=== PATIENT | male | born 1975 | race African-American/Black ===

== ENCOUNTER 2017-02-20 08:25 | Emergency (ER) | payer SELFPAY ==
[~2017-02-20] VITALS: Ht 180.3 cm; Wt 86.2 kg
[~2017-02-20 08:25] MED LIST: CIPRO500 MG PO; METRONIDAZOLE250 MG PO; NKM; OMEPRAZOLE40 M1 ORAL; ONDANSETRON ODT4 MG PO; PANTOPRAZOLE SO40 MG ORAL; PROTONIX40 MG PO
[2017-02-20 08:36] VITALS: BP 178/92
[2017-02-20] MEDS ORDERED: IBUPROFEN600 MG ORAL (09:06)
[2017-02-20 09:15] VITALS: BP 168/99
--- NOTE | 2017-02-20 09:17 | Emergency Room Report ---
History of Present Illness General Chief Complaint: General Complaint Source: Patient Present Illness HPI Patient was ever since he started gaining weight he noticed pain to the right buttock area lower back region knife of the pain coming down the leg And felt tingling sensation to his foot as well Mainly on the right side denies any other fall or trauma denies any loss of control of bowel urination denies any sensory deficit in the perineal area Denies any other weakness He reports that when he bends forward it does relieve some of the pressure he finds himself walking that way to help with the discomfort Allergies: Coded Allergies: No Known Allergies (Unverified , 09/04/12) Patient History Past Medical History: see triage record Pertinent Family History: none Reviewed Nursing Documentation: PMH: Agreed, PSxH: Agreed Nursing Documentation-PMH Past Medical History: No Stated History Hx Gastrointestinal Problems: Yes - drinks abdominal pain Review of Systems All Other Systems: negative except mentioned in HPI Physical Exam Vital Signs Date Time Temp Pulse Resp B/P Pulse Ox O2 Delivery O2 Flow Rate FiO2 02/20/17 08:36 98.2 73 16 178/92 99 02/20/17 08:36 Room Air Sp02 EP Interpretation: reviewed, normal General Appearance: well appearing, no apparent distress Head: normocephalic, atraumatic Eyes: bilateral eye EOMI, bilateral eye PERRL ENT: hearing grossly normal, normal pharynx, TMs + canals normal, uvula midline Neck: full range of motion, supple, no meningismus, no bony tend Respiratory: lungs clear, normal breath sounds, no rhonchi, no respiratory distress, no retraction, no accessory muscle use Cardiovascular #1: normal peripheral pulses, regular rate, rhythm, no edema, no gallop, no JVD, no murmur Gastrointestinal: normal bowel sounds, non tender, soft, no mass, no organomegaly, non-distended, no guarding, no hernia, no pulsatile mass, no rebound Genitourinary: no CVA tenderness Musculoskeletal: other - Reproduce discomfort at the right posterior superior iliac crest after approximately 25-30 of leg raising on the right side, Neurologic: oriented x3, responsive, quality director III-XII nml as tested, motor strength/ tone normal, sensory intact Psychiatric: mood/affect normal Skin: normal color, no rash, warm/dry, palpation normal Lymphatic: normal inspection, no adenopathy Medical Decision Making Diagnostic Impression: Primary Impression: radiculopathy Additional Impression: sciatica ER Course Multiple differentials are considered Patient's Accu-Chek was negative for signs of diabetes Patient appears to have findings in line with muscle skeletal pathology I did entertain electrolyte and vascular issues Patient is otherwise stable for close outpatient followup Last Vital Signs Date Time Temp Pulse Resp B/P Pulse Ox O2 Delivery O2 Flow Rate FiO2 02/20/17 08:36 98.2 73 16 178/92 99 Room Air Status: unchanged Disposition: HOME, SELF-CARE Condition: Stable Scripts Ibuprofen* (MOTRIN*) 600 Mg Tablet 600 MG ORAL Q8H Y for For Pain, #20 TAB 0 Refills Prov: CHAPIS STORY D.O. 02/20/17 Referrals: NOT CHOSEN IPA/MD,REFERRING (PCP) Patient Instructions: Sciatica, [id number], Lumbosacral Radiculopathy Additional Instructions: Patient is provided with the discharge instructions notified to follow up with primary doctor in the next 2-3 days otherwise return to the er with any worsening symptoms. Please note that this report is being documented using [employer] technology. This can lead to erroneous entry secondary to incorrect interpretation by the dictating instrument. CHAPIS STORY D.O. Feb 20, 2017 09:17
[2017-02-20 09:22] VITALS: BP 168/99
== END 2017-02-20 09:23 | disposition home or self-care (01) ==
LOC: EMR 08:56
DX: M54.17 Radiculopathy, lumbosacral region (principal); M54.40 Lumbago with sciatica, unspecified side
CPT/HCPCS: 82962; 99283

== ENCOUNTER 2018-05-10 12:18 | Emergency (ER) | payer SELFPAY ==
[~2018-05-10] VITALS: Ht 180.3 cm; Wt 86.2 kg
[~2018-05-10 12:18] MED LIST changes: +IBUPROFEN600 MG ORAL
[2018-05-10 12:29] VITALS: BP 186/115
[2018-05-10 12:42] VITALS: BP 184/99
[2018-05-10] MEDS ORDERED: Propofol 200mg/20ml IV ONE ×2 (12:59→13:15)
--- NOTE | 2018-05-10 13:22 | Emergency Room Report ---
History of Present Illness General Chief Complaint: Upper Extremity Injury Source: Patient Present Illness HPI Patient presents with complaints of right shoulder pain Reports that he was playing catch with his son When he felt the shoulder pop out of place He reports the last time this happened was about 4 years ago Pain is 8 out of 10 localized to the right shoulder Denies any other trauma denies any chest pain or shortness of breath Denies any neck pain or photophobia Allergies: Coded Allergies: No Known Allergies (Unverified , 09/04/12) Patient History Past Medical History: see triage record Pertinent Family History: none Reviewed Nursing Documentation: PMH: Agreed; PSxH: Agreed Nursing Documentation-PMH Past Medical History: No History, Except For Hx Gastrointestinal Problems: Yes - drinks abdominal pain History Of Psychiatric Problem: No - shoulder dislocation Review of Systems All Other Systems: negative except mentioned in HPI Physical Exam Vital Signs Date Time Temp Pulse Resp B/P (MAP) Pulse Ox O2 Delivery O2 Flow Rate FiO2 05/10/18 12:06 98.3 90 20 158/106 95 Room Air 98.2 Sp02 EP Interpretation: reviewed, normal General Appearance: mild distress - In acute pain Head: normocephalic, atraumatic Eyes: bilateral eye PERRL, bilateral eye EOMI ENT: hearing grossly normal, normal pharynx Neck: full range of motion, supple Respiratory: lungs clear, normal breath sounds Cardiovascular #1: regular rate, rhythm, no edema Gastrointestinal: non tender, soft Musculoskeletal: other - Obvious deformity to the right shoulder, appears to be likely dislocated however sensory intact, able to make pattern duplicator with the right hand neurovascularly intact with appropriate pulses, Neurologic: alert, oriented x3, responsive Skin: normal color, no rash Lymphatic: no adenopathy Procedures Splinting Splinting : Consent: Emergent Location: Right shoulder Hand-Made Type: Shoulder immobilizer Pre-Proc Neuro Vasc Exam: normal Post-Proc Neuro Vasc Exam: normal Patient Tolerated: Well Complications: None Joint Reduction Joint Reduction : Consent: Emergent Joint Reduction Site: shoulder (R) Procedural Sedation: Yes Reduction Attempts: One Pre-Procedure NV Exam: Yes Post-Procedure NV Exam: Yes Post Joint Reduction Film: joint reduced Patient Tolerated: Well Complications: None Procedural Sedation Consent: Emergent Time out called at: 13:00 Pre-Sedation Assessment: Plan for Sedation Discuss Airway Assessment (Malampati): I Heart: normal Lungs: normal Abdomen: normal Extremities: normal Procedures/Plans: Closed Reduction Plan for Moderate Sedation: Propofol ASA Score: I Procedure Narrative total face-toe time 9 minutes Start Time: 13:04 End Time: 13:09 Communication: No Apparent Limitation Mental Status: Awake Respiration: Unlabored Skin Condition: WNL Abdomen: WNL Nausea: NO Vomiting: NO Medical Decision Making Diagnostic Impression: Primary Impression: Shoulder dislocation Additional Impression: Reduction defect of right upper extremity ER Course Given the patient's history and presentation given the acute discomfort patient required residual sedation for reduction of the dislocation Please refer to the note for full specifics After 80 mg of propofol IV patient had appropriate sedation With minimal traction on the right arm there was clinical reduction of the dislocation patient placed into a shoulder immobilizer and able to have close outpatient follow-up Other X-Ray Diagnostic Results Other X-Ray Diagnostic Results #1: X-Ray ordered: Right shoulder # of Views/Limited Vs Complete: 3 View Indication: Pain EP Interpretation: Yes Interpretation: no soft tissue swelling, no fractures, other - Dislocation Impression: Other - Dislocation Electronically Signed by: Fermín Irene DO Other X-Ray Diagnostic Results #2: X-Ray ordered: Right shoulder # of Views/Limited Vs Complete: 2 View Indication: Other - Reduction EP Interpretation: Yes Interpretation: no dislocation, no soft tissue swelling, no fractures Impression: No acute disease Electronically Signed by: Fermín Irene DO Last Vital Signs Date Time Temp Pulse Resp B/P (MAP) Pulse Ox O2 Delivery O2 Flow Rate FiO2 05/10/18 12:42 98.2 72 14 184/99 100 Room Air 98.2 Status: improved Disposition: HOME, SELF-CARE Condition: Improved Scripts Acetaminophen With Codeine (T#3) (TYLENOL #3 TAB*) Y Tab 1 TAB ORAL Q8H PRN for For Pain, #10 TAB Prov: Fermín Irene DO 05/10/18 Ibuprofen* (MOTRIN*) 600 Mg Tablet 600 MG ORAL Q8H PRN for For Pain, #20 TAB 0 Refills Prov: Fermín Irene DO 05/10/18 Additional Instructions: Patient is provided with the discharge instructions notified to follow up with primary doctor in the next 2-3 days otherwise return to the er with any worsening symptoms. Please note that this report is being documented using [employer] technology. This can lead to erroneous entry secondary to incorrect interpretation by the dictating instrument. Fermín Irene DO May 10, 2018 13:22
[2018-05-10] MEDS ORDERED: IBUPROFEN600 MG ORAL (14:04)
[2018-05-10] MEDS ORDERED: ACETAMINOPHEN-1 EAC1 ORAL (14:04)
[2018-05-10 14:11] VITALS: BP 154/98
[2018-05-10 14:20] VITALS: BP 154/98
--- NOTE | 2018-05-11 12:06 | Diagnostic Imaging Report ---
Indication: Pain Technique: XRAY Shoulder Compl R Comparison: None Findings: Inferior and medial displacement of the humeral head noted subglenoid compatible with an anterior shoulder dislocation. There may be a small Hill-Sachs deformity. Imaged right lung is clear. No radiopaque foreign body identified. Impression: Right anterior shoulder dislocation. Question small Hill-Sachs deformity of the right humeral head. Correlate for history of prior right shoulder dislocations.
--- NOTE | 2018-05-11 12:07 | Diagnostic Imaging Report ---
Indication: Shoulder dislocation Technique: XRAY Shoulder Compl R Comparison: Earlier the same day. Findings: Interval reduction of previously seen anterior shoulder dislocation. The humeral head is not seated well within the glenoid. No definite acute fracture identified. Imaged portions of the right lung are clear. Impression: Interval reduction of previously seen right shoulder dislocation.
== END 2018-05-10 14:20 | disposition home or self-care (01) ==
LOC: EDBD 12:18 → EMR 12:25
DX: S43.014A Anterior dislocation of right humerus, initial encounter (principal); X50.9XXA Other and unspecified overexertion or strenuous movements or postures, initial encounter; Y92.9 Unspecified place or not applicable
CPT/HCPCS: 23655; 73030; 96374; 99284; J2704; 29105